=== PATIENT | male | born 1945 | race Caucasian/White ===

== ENCOUNTER → 2018-02-28 | Outpatient (CLI) | payer MEDICARE, OTHER ==
[~2018-02-28] MED LIST: ASPIRIN E.C. 8181 MG PO; GLUCOSAMINE PO; MULTIPLE VITAMI1 CAP PO; PRINIVIL5 MG PO
== END ==
LOC: MHCPAIN 15:02
DX: G89.29 Other chronic pain (principal); M47.817 Spondylosis without myelopathy or radiculopathy, lumbosacral region; M54.16 Radiculopathy, lumbar region; M53.3 Sacrococcygeal disorders, not elsewhere classified; M48.061 Spinal stenosis, lumbar region without neurogenic claudication
CPT/HCPCS: G0463

== ENCOUNTER 2020-08-27 14:00 | Outpatient (CLI) | payer MEDICARE, OTHER ==
[2009-05-27 09:32] VITALS: BP 116/75
[2020-08-27] VITALS (8 sets, daily range): BP systolic 116–124; BP diastolic 79–96; PULSE 49–59; TEMP 98.1–98.4
[~2020-08-27] VITALS: Ht 170.2 cm; Wt 90.9 kg
[~2020-08-27 14:00] MED LIST changes: +MEN'S ONE DAIL1 EACH PO; -MULTIPLE VITAMI1 CAP PO
[2020-08-27] MEDS ORDERED: PRENATAL FORMU1 EAC3 PO (15:07)
[2020-08-27] MEDS ORDERED: COZAAR 50MG50 MG/TAB PO (15:09)
[2020-08-27] MEDS ORDERED: TYLENOL 8 HR PO (15:10)
[2020-08-27] MEDS ORDERED: PHARMASSURE ZIN50 MG PO (15:12)
[2020-08-27] MEDS ORDERED: VITAMINC1000TA PO (15:13)
[2020-08-27] MEDS ORDERED: VITAMIN D31000 I1 PO (15:14)
--- NOTE | 2020-08-27 17:20 | NUR ---
Pt tolerated infusion well. He denied any adverse reactions, he remained gcs 15, pwd with stable vitals throughout observation period. pt was ambulatory to exit [facility] wrapped in a blanket and masked. steady gait. no concerns at time of departure.
== END 2020-08-27 18:00 | disposition home or self-care (01) ==
LOC: EUO 14:00
DX: U07.1 COVID-19 (principal)
CPT/HCPCS: J7050

== ENCOUNTER 2023-07-21 10:55 | Emergency (ER) | payer MEDICARE ==
[~2023-07-21] VITALS: Ht 170.2 cm; Wt 90.9 kg
[~2023-07-21 10:55] MED LIST changes: +ANTIVERT 25MG25 MG PO; +COZAAR 50MG50 MG/TAB PO; +PHARMASSURE ZIN50 MG PO; +PRENATAL FORMU1 EAC3 PO; +TYLENOL 8 HR PO; +VITAMIN D31000 I1 PO; +VITAMINC1000TA PO
[2023-07-21 11:14] VITALS: TEMP 97.8
[2023-07-21 12:19] LABS: ALBUMIN 3.9 gm/dL (3.4-4.8); BILIRUBIN,TOTAL 0.7 mg/dL (0.2-1.2); CALCIUM 9.6 mg/dL (8.4-10.2); CREATININE, serum 1.13 mg/dL (0.72-1.25); TOTAL PROTEIN 8.2 gm/dL (6.2-8.1)
[2023-07-21 12:22] LABS: BASO % 0.5 % (0.0-2.0); EOS # 0.1 K/mm3 (0.0-0.7); EOS % 2.2 % (0.0-4.0); GRAN # 3.7 K/mm3 (1.4-6.5); GRAN % 59.3 % (42.2-75.2); HEMATOCRIT 43.4 % (42.0-52.0); HEMOGLOBIN 13.8 g/dl (13.5-18.0); LYMPH # 1.8 K/mm3 (1.2-3.4); LYMPH % 27.8 % (20.0-51.0); MEAN CELL VOLUME 94 fl (80.0-100.0); MEAN CORPUSCULAR HEMOGLOBIN 30 pg (27-31); MEAN CORPUSCULAR HGB CONC 32 g/dl (33.0-37.0); MEAN PLATELET VOLUME 13.6 fl (7.4-10.4); MONO # 0.6 K/mm3 (0.1-0.6); MONO % 9.9 % (1.7-9.3); PLATELET COUNT 161 K/mm3 (130-400); RED BLOOD COUNT 4.64 M/mm3 (4.20-5.60); REDCELL DISTRIBUTION WIDTH-CV 13.2 % (11.5-14.5)
[2023-07-21 12:25] LABS: TROPONIN-I 0.019 ng/mL (0.00-0.033)
[2023-07-21 14:07] VITALS: BP 144/89; PULSE 56
== END 2023-07-21 14:14 | disposition home or self-care (01) ==
LOC: COL.ER 10:55
PROVIDERS: Emergency Medicine
DX: R07.89 Other chest pain (principal); R42 Dizziness and giddiness

== ENCOUNTER → 2023-08-09 | Outpatient (CLI) | payer MEDICARE, OTHER | LOC: COL.VAS 08:53 | DX: I51.7 Cardiomegaly (principal); I34.0 Nonrheumatic mitral (valve) insufficiency ==